=== PATIENT | female | born 1945 | race Caucasian/White ===

== ENCOUNTER → 2019-09-12 | Day surgery (SDC) | payer MEDICARE, OTHER ==
--- NOTE | 2019-09-13 16:04 | PATH ---
Cytology Non-Gynecological Report Patient Name: ANDREW BELL [facility]. Rec. #: [id number] /Age/Gender: 1945 (Age: 74) / F Account: [id number] Location: RADIOLOGY INTER Taken: 09/11/2019 Received: 09/12/2019 Reported: 09/13/2019 Physicians: Ramsey Salinas M.D. Specimen(s) Received LEFT THYROID FNA Clinical History Left thyroid nodule 1.03 x 0.74 x 1.00cm Final Diagnosis THYROID, LEFT, FINE NEEDLE ASPIRATION: UNSATISFACTORY FOR EVALUATION. [place] CLASS I: NON-DIAGNOSTIC. RARE FOLLICULAR CELLS, MACROPHAGES, AND SCANT COLLOID PRESENT. Comment: The specimen has insufficient follicular cell clusters and/or colloid; and suboptimal for complete cytopathologic evaluation according to [facility] [place] System for Reporting Thyroid FNA. If the nodule has worrisome ultrasound imaging properties, suggest repeat FNA, as warranted. Electronically Signed Jenn Jimenez M.D. Gross Description Received are eight direct smears, four of which are air-dried and Diff-Quik stained, and four of which are alcohol fixed and Pap stained. Also received is 20 ml of bloody formalin from which one cellblock is prepared.
== END | disposition home or self-care (01) ==
LOC: JRADIR 09:08
PROVIDERS: ATTEND Internal Medicine
PROC: 0G9G3ZX Drainage of Left Thyroid Gland Lobe, Percutaneous Approach, Diagnostic (ICD-10-PCS; principal; 2019-09-12)
DX: E04.1 Nontoxic single thyroid nodule (principal)
CPT/HCPCS: 76942

== ENCOUNTER 2020-09-07 21:25 | Emergency (ER) | payer MEDICARE, OTHER ==
[2020-09-07 21:44] VITALS: BP 145/56; PULSE 69; TEMP 97.8; BMI 26.6
[2020-09-07 22:54] LABS: EOS % 1.8 % (0-4.5); HEMATOCRIT 36.7 % (32.4-45.2); HEMOGLOBIN 12.6 GM/dL (10.7-15.3); LYMPH % 19.2 % (8-40); MCH 29.4 pg (25.7-33.7); MCHC 34.4 g/dl (32.0-36.0); MEAN CELL VOLUME 85.4 fl (80-96); MEAN PLT VOLUME 9.8 fl (7.5-11.1); MONO % 6.3 % (3.8-10.2); NEUT % 71.7 % (42.8-82.8); PLATELET COUNT 184 K/MM3 (134-434); RDW 14.5 % (11.6-15.6); WHITE BLOOD COUNT 7.8 K/mm3 (4.0-10.0)
[2020-09-07 23:08] LABS: CHLORIDE 106 mmol/L (98-107); SODIUM 138 mmol/L (136-145)
[2020-09-07 23:10] LABS: CALCIUM 8.7 mg/dL (8.5-10.1)
[2020-09-07 23:11] LABS: ALBUMIN 3.4 g/dl (3.4-5.0); BLOOD UREA NITROGEN 16.9 mg/dL (7-18); CO2 28 mmol/L (21-32); GLUCOSE,RANDOM 93 mg/dL (74-106); MAGNESIUM 2.3 mg/dL (1.8-2.4)
[2020-09-07 23:14] LABS: CREATININE 1.1 mg/dL (0.55-1.3); SGOT/AST 34 U/L (15-37); SGPT/ALT 22 U/L (13-61)
[2020-09-07 23:15] LABS: BILIRUBIN,TOTAL 0.8 mg/dL (0.2-1); TOT PROT 6.7 g/dl (6.4-8.2)
[2020-09-07 23:16] LABS: ALK PHOS 101 U/L (45-117)
[2020-09-07 23:27] LABS: ANION GAP 4 MMOL/L (8-16)
[2020-09-07 23:30] LABS: POTASSIUM 6.8 mmol/L (3.5-5.1)
[2020-09-08 00:27] LABS: EPI CELLS 4 /uL (0-25.1); HYALINE CASTS 0 /uL (0-3.1); URINE APPEARANCE CLEAR; URINE BACTERIA 162 /uL (0-1359); URINE BILIRUBIN NEGATIVE (NEGATIVE); URINE COLOR YELLOW; URINE GLUCOSE (UA) NEGATIVE (NEGATIVE); URINE KETONE NEGATIVE (NEGATIVE); URINE LEUK ESTERASE NEGATIVE (NEGATIVE); URINE NITRITE NEGATIVE (NEGATIVE); URINE PROTEIN NEGATIVE (NEGATIVE); URINE WBC 5 /uL (0-25.8)
[2020-09-08 00:43] LABS: POTASSIUM 4.3 mmol/L (3.5-5.1)
[2020-09-08 00:44] LABS: CALCIUM 8.8 mg/dL (8.5-10.1)
[2020-09-08 00:45] LABS: BLOOD UREA NITROGEN 16.7 mg/dL (7-18)
== END 2020-09-08 01:20 | disposition home or self-care (01) ==
LOC: JER 21:25
DX: F03.90 Unspecified dementia, unspecified severity, without behavioral disturbance, psychotic disturbance, mood disturbance, and anxiety (principal)
CPT/HCPCS: 36415; 70450-TC; 71045-TC-FY; 80048; 80053; 80307; 81003; 82550; 82962; 83605; 83735; 84443; 84484; 85025; 87086; 93005; 93010; 99285-25

== ENCOUNTER 2021-02-21 00:19 | Emergency (ER) | payer MEDICARE, OTHER ==
[2021-02-21] MEDS ORDERED: DIPHTH,PERTUSS(ACELL),TET 0.5 ML DISP.SYRIN IM ONE ×2 (01:34→02:02)
[2021-02-21 01:55] VITALS: BP 146/74; PULSE 78; TEMP 98.5; BMI 26.5
[2021-02-21] MEDS ORDERED: BACITRACIN 15 GM TUBE TOPICAL OINTMENT ONE (02:17)
== END 2021-02-21 02:40 | disposition home or self-care (01) ==
LOC: JER 00:19
PROC: 3E0234Z Introduction of Serum, Toxoid and Vaccine into Muscle, Percutaneous Approach (ICD-10-PCS; principal; 2021-02-21)
DX: F03.90 Unspecified dementia, unspecified severity, without behavioral disturbance, psychotic disturbance, mood disturbance, and anxiety (principal); W55.03XA Scratched by cat, initial encounter; Y92.9 Unspecified place or not applicable
CPT/HCPCS: 90471; 90715; 99283-25